=== PATIENT | male | born 1950 | race Caucasian/White ===

== ENCOUNTER → 2016-11-21 | Outpatient (CLI) | payer MEDICARE, OTHER ==
[~2016-11-21] MED LIST: ASPI-586 PO; HYDR-3454 PO; METF500T4 PO; OXYB5TAB9 PO; PRAV20TA3 PO; PROP20TA5 PO
[2016-11-21 13:16] LABS: BASOPHILS % (AUTO) 1 % (0-10); EOSINOPHILS # (AUTO) 0.1 10^3/uL (0.0-0.3); EOSINOPHILS % (AUTO) 2 % (0-10); LYMPHOCYTES # (AUTO) 1.9 X 10^3 (1.0-4.0); LYMPHOCYTES % (AUTO) 31 % (12-44); MEAN CORPUSCULAR HEMOGLOBIN 31 PG (25-34); MEAN CORPUSCULAR HGB CONC 36 G/DL (32-36); MEAN CORPUSCULAR VOLUME 88 FL (80-99); MEAN PLATELET VOLUME 9.7 FL (7.4-10.4); MONOCYTES # (AUTO) 0.7 X 10^3 (0.0-1.0); MONOCYTES % (AUTO) 12 % (0-12); NEUTROPHILS # (AUTO) 3.4 X 10^3 (1.8-7.8); NEUTROPHILS % (AUTO) 55 % (42-75); PLATELET COUNT 259 10^3/uL (130-400); RED BLOOD COUNT 4.68 10^6/uL (4.35-5.85); RED CELL DISTRIBUTION WIDTH 12.6 % (10.0-14.5); WHITE BLOOD COUNT 6.1 10^3/uL (4.3-11.0)
[2016-11-21 13:33] LABS: ALANINE AMINOTRANSFERASE 20 U/L (0-55); ALBUMIN 4.2 GM/DL (3.2-4.5); ANION GAP 11 MMOL/L (5-14); ASPARTATE AMINO TRANSFERASE 15 U/L (5-34); BILIRUBIN,TOTAL 0.6 MG/DL (0.1-1.0); BLOOD UREA NITROGEN 11 MG/DL (7-18); BUN/CREATININE RATIO 12; CARBON DIOXIDE 22 MMOL/L (21-32); CHLORIDE 107 MMOL/L (98-107); CREATININE SERUM 0.93 MG/DL (0.60-1.30); GFR ESTIMATED > 60; GLUCOSE 155 MG/DL (70-105); POTASSIUM 3.9 MMOL/L (3.6-5.0); SODIUM 140 MMOL/L (135-145); TOTAL PROTEIN 6.7 GM/DL (6.4-8.2)
== END ==
LOC: ONC 12:50
PROVIDERS: ATTEND Internal Medicine Hematology & Oncology
DX: D68.51 Activated protein C resistance (principal); R51 Headache; E11.9 Type 2 diabetes mellitus without complications; E78.5 Hyperlipidemia, unspecified; Z86.73 Personal history of transient ischemic attack (TIA), and cerebral infarction without residual deficits
CPT/HCPCS: 36415; 80053; 85025; 99213

== ENCOUNTER → 2018-03-16 | Outpatient (CLI) | payer MEDICARE, OTHER ==
[~2018-03-16] MED LIST changes: +METF-397 PO; -METF500T4 PO
== END ==
LOC: CARD 09:39
PROVIDERS: ATTEND Internal Medicine Interventional Cardiology
DX: I63.9 Cerebral infarction, unspecified (principal); I10 Essential (primary) hypertension
CPT/HCPCS: 93225; 93226

== ENCOUNTER 2018-05-14 12:30 | Outpatient (RCR) | payer MEDICARE, OTHER ==
[~2018-05-14 12:30] MED LIST changes: -HYDR-3454 PO; +HYDR-3455 PO
== END 2018-07-18 | disposition home or self-care (01) ==
LOC: CARD 12:30
PROVIDERS: ATTEND Internal Medicine Interventional Cardiology
DX: I63.9 Cerebral infarction, unspecified (principal); I10 Essential (primary) hypertension
CPT/HCPCS: 93270

== ENCOUNTER → 2018-11-28 | Outpatient (CLI) | payer MEDICARE, OTHER | LOC: ONC 12:50 | PROVIDERS: ATTEND Internal Medicine Hematology & Oncology | DX: D68.51 Activated protein C resistance (principal); E88.2 Lipomatosis, not elsewhere classified; N32.9 Bladder disorder, unspecified; E11.40 Type 2 diabetes mellitus with diabetic neuropathy, unspecified; E78.5 Hyperlipidemia, unspecified; Z79.899 Other long term (current) drug therapy; Z86.73 Personal history of transient ischemic attack (TIA), and cerebral infarction without residual deficits; Z87.891 Personal history of nicotine dependence | CPT/HCPCS: 99213 ==

== ENCOUNTER → 2019-11-27 | Outpatient (CLI) | payer MEDICARE, OTHER ==
[~2019-11-27] MED LIST changes: +OXYB5TAB13 PO; -OXYB5TAB9 PO
[2019-11-27 13:10] LABS: BASOPHILS # (AUTO) 0.1 10^3/uL (0.0-0.1); BASOPHILS % (AUTO) 1 % (0-10); EOSINOPHILS # (AUTO) 0.2 10^3/uL (0.0-0.3); EOSINOPHILS % (AUTO) 3 % (0-10); HEMATOCRIT 42 % (40-54); HEMOGLOBIN 15.1 G/DL (13.3-17.7); LYMPHOCYTES % (AUTO) 30 % (12-44); MEAN CORPUSCULAR HEMOGLOBIN 31 PG (25-34); MEAN CORPUSCULAR HGB CONC 36 G/DL (32-36); MEAN CORPUSCULAR VOLUME 87 FL (80-99); MEAN PLATELET VOLUME 9.5 FL (7.4-10.4); MONOCYTES # (AUTO) 0.7 X 10^3 (0.0-1.0); MONOCYTES % (AUTO) 10 % (0-12); NEUTROPHILS # (AUTO) 3.6 X 10^3 (1.8-7.8); NEUTROPHILS % (AUTO) 56 % (42-75); PLATELET COUNT 262 10^3/uL (130-400); RED CELL DISTRIBUTION WIDTH 12.7 % (10.0-14.5); WHITE BLOOD COUNT 6.5 10^3/uL (4.3-11.0)
[2019-11-27 13:28] LABS: ALANINE AMINOTRANSFERASE 29 U/L (0-55); ALBUMIN 4.5 GM/DL (3.2-4.5); ALKALINE PHOSPHATASE 66 U/L (40-136); BILIRUBIN,TOTAL 0.9 MG/DL (0.1-1.0); BUN/CREATININE RATIO 16; CALCIUM 9.9 MG/DL (8.5-10.1); CARBON DIOXIDE 23 MMOL/L (21-32); CHLORIDE 105 MMOL/L (98-107); CREATININE SERUM 0.94 MG/DL (0.60-1.30); GFR ESTIMATED > 60; GLUCOSE 154 MG/DL (70-105); SODIUM 138 MMOL/L (135-145); TOTAL PROTEIN 6.9 GM/DL (6.4-8.2)
== END ==
LOC: ONC 12:58
PROVIDERS: ATTEND Internal Medicine Hematology & Oncology
DX: D68.51 Activated protein C resistance (principal); E11.9 Type 2 diabetes mellitus without complications; E88.2 Lipomatosis, not elsewhere classified; N32.9 Bladder disorder, unspecified; E78.5 Hyperlipidemia, unspecified; Z98.890 Other specified postprocedural states
CPT/HCPCS: 80053; 85025; G0463; 99213

== ENCOUNTER 2020-03-27 18:01 | Emergency (ER) | payer MEDICARE, OTHER ==
[~2020-03-27] VITALS: Ht 177.8 cm; Wt 97.5 kg
[2020-03-27] MEDS ORDERED: ACETAMINOPHEN 500 MG TAB (TYLENOL) PO ONE (18:30)
[2020-03-27] MEDS ORDERED: IBUPROFEN 800 MG (MOTRIN) TAB PO ONE (18:30)
--- NOTE | 2020-03-27 18:32 | ED General ---
General Chief Complaint: General Problems/Pain Stated Complaint: COUGH,NAUSEA,HEADACHE,FEVER Source of Information: Patient Exam Limitations: No Limitations History of Present Illness Date Seen by Provider: Mar 27, 2020 Time Seen by Provider: 18:30 Initial Comments ER with about a 1 week history of intermittent shaking and sensation of being very cold. He is checked his temperature handful of times but it has never exceeded 100 degrees. He has had a slight nonproductive cough a couple of times a day. He has had some nausea and was incontinent of urine once during 1 of these episodes of shaking and extreme cold. He has had some urinary frequency and urgency at night over the past week as well. Primary care is Dr. Tidwell in [place]. Timing/Duration: 1-2 Days Severity: Moderate Associated Systoms: Cough, Fever/Chills, Headaches (Complains of headaches at night that go away during the day for the past week); No Shortness of Air (Denies shortness of breath) Allergies and Home Medications Allergies Coded Allergies: No Known Drug Allergies (Unverified , 03/18/14) Home Medications Aspirin 81 Mg Tablet.dr, 81 MG PO DAILY, (Reported) Hydrocodone/Acetaminophen 1 Each Tablet, 1 EACH PO Q4H PRN for PAIN Prescribed by: KEVIN MEHTA on 11/20/15 1147 Metformin HCl 500 Mg Tablet, 500 MG PO BID, (Reported) Oxybutynin Chloride 5 Mg Tablet, 5 MG PO BID, (Reported) Pravastatin Sodium 20 Mg Tablet, 20 MG PO HS, (Reported) Propranolol HCl 20 Mg Tablet, 20 MG PO BID, (Reported) Patient Home Medication List Home Medication List Reviewed: Yes Review of Systems Review of Systems Constitutional: see HPI, chills, fever EENTM: see HPI Respiratory: see HPI, cough Cardiovascular: no symptoms reported Genitourinary: see HPI, dysuria, frequency Musculoskeletal: no symptoms reported Skin: no symptoms reported Psychiatric/Neurological: See HPI, Headache Hematologic/Lymphatic: No Symptoms Reported Immunological/Allergic: no symptoms reported Past Dxxzjav-Pjxszb-Hxpcdx Hx Patient Social History Alcohol Use: Denies Use Recreational Drug Use: No Smoking Status: Former Smoker Type Used: Cigarettes Former Smoker, Quit: Nov 01, 1985 2nd Hand Smoke Exposure: No Past Medical History Surgeries: Yes (TURP, nasal fx, hernia x2, trigger finger, R CTR, prostate) Respiratory: No Cardiac: No Neurological: Yes (TIA-2002) Genitourinary: Yes ("still has some prostate") Prostate Problems Gastrointestinal: No Musculoskeletal: No Endocrine: Yes Cancer: No Psychosocial: No Integumentary: No Blood Disorders: Yes (factor 5, ) Physical Exam Vital Signs Vital Signs - First Documented 03/27/20 18:15 Temp 39.2 Pulse 116 Resp 26 B/P (MAP) 160/85 (110) Pulse Ox 94 O2 Delivery Room Air Capillary Refill : Height, Weight, BMI Height: 5'10.00" Weight: 220lbs. 0.0oz. 99.035210oe; 36.61 BMI Method: General Appearance: No Apparent Distress, WD/WN, Other (Temperature 102.6. Oxygen saturation 94% room air.) Eyes: Bilateral Eye Normal Inspection, Bilateral Eye PERRL Neck: Full Range of Motion, Normal Inspection Respiratory: No Accessory Muscle Use, No Respiratory Distress Cardiovascular: Normal Peripheral Pulses, Tachycardia Gastrointestinal: Normal Bowel Sounds, Non Tender, Soft Extremity: Normal Capillary Refill, Normal Inspection Neurologic/Psychiatric: Alert, Oriented x3 Skin: Normal Color, Warm/Dry Progress/Results/Core Measures Suspected Sepsis SIRS Temperature: Pulse: Respiratory Rate: Laboratory Tests 03/27/20 18:25: White Blood Count 6.4 Blood Pressure / Mean: Laboratory Tests 03/27/20 18:25: Creatinine 1.35H, Platelet Count 203, Total Bilirubin 0.5 Results/Orders Lab Results Laboratory Tests Test 03/27/20 18:25 03/27/20 18:27 03/27/20 18:49 Range/Units White Blood Count 6.4 4.3-11.0 10^3/uL Red Blood Count 4.85 4.30-5.52 10^6/uL Hemoglobin 15.2 13.3-17.7 g/dL Hematocrit 43 40-54 % Mean Corpuscular Volume 90 80-99 fL Mean Corpuscular Hemoglobin 31 25-34 pg Mean Corpuscular Hemoglobin Concent 35 32-36 g/dL Red Cell Distribution Width 11.9 10.0-14.5 % Platelet Count 203 130-400 10^3/uL Mean Platelet Volume 9.6 9.0-12.2 fL Immature Granulocyte % (Auto) 0 % Neutrophils (%) (Auto) 72 42-75 % Lymphocytes (%) (Auto) 16 12-44 % Monocytes (%) (Auto) 10 0-12 % Eosinophils (%) (Auto) 1 0-10 % Basophils (%) (Auto) 1 0-10 % Neutrophils # (Auto) 4.6 1.8-7.8 10^3/uL Lymphocytes # (Auto) 1.1 1.0-4.0 10^3/uL Monocytes # (Auto) 0.7 0.0-1.0 10^3/uL Eosinophils # (Auto) 0.0 0.0-0.3 10^3/uL Basophils # (Auto) 0.0 0.0-0.1 10^3/uL Immature Granulocyte # (Auto) 0.0 0.0-0.1 10^3/uL D-Dimer 0.09 0.00-0.49 UG/ML Sodium Level 135 135-145 MMOL/L Potassium Level 3.9 3.6-5.0 MMOL/L Chloride Level 100 98-107 MMOL/L Carbon Dioxide Level 21 21-32 MMOL/L Anion Gap 14 5-14 MMOL/L Blood Urea Nitrogen 15 7-18 MG/DL Creatinine 1.35 H 0.60-1.30 MG/DL Estimat Glomerular Filtration Rate 52 BUN/Creatinine Ratio 11 Glucose Level 249 H 70-105 MG/DL Calcium Level 8.9 8.5-10.1 MG/DL Corrected Calcium 8.5 8.5-10.1 MG/DL Total Bilirubin 0.5 0.1-1.0 MG/DL Aspartate Amino Transf (AST/SGOT) 22 5-34 U/L Alanine Aminotransferase (ALT/SGPT) 32 0-55 U/L Alkaline Phosphatase 73 40-136 U/L C-Reactive Protein High Sensitivity 1.19 H 0.00-0.50 MG/DL B-Type Natriuretic Peptide < 10.0 <100.0 PG/ML Total Protein 7.5 6.4-8.2 GM/DL Albumin 4.5 3.2-4.5 GM/DL Coronavirus 2019 (ABDULKADIR) Positive H Negative Urine Color YELLOW Urine Clarity CLEAR Urine pH 5.5 5-9 Urine Specific [place] 1.020 1.016-1.022 Urine Protein NEGATIVE NEGATIVE Urine Glucose (UA) 3+ H NEGATIVE Urine Ketones TRACE H NEGATIVE Urine Nitrite NEGATIVE NEGATIVE Urine Bilirubin NEGATIVE NEGATIVE Urine Urobilinogen 0.2 < = 1.0 MG/DL Urine Leukocyte Esterase NEGATIVE NEGATIVE Urine RBC (Auto) NEGATIVE NEGATIVE Urine RBC NONE /HPF Urine WBC 0-2 /HPF Urine Squamous Epithelial Cells 0-2 /HPF Urine Crystals NONE /LPF Urine Bacteria NEGATIVE /HPF Urine Casts NONE /LPF Urine Mucus NEGATIVE /LPF Urine Culture Indicated NO My Orders Orders - PATIENCE JOSEPH APRN Cbc With Automated Diff (03/27/20 18:06) Hs C Reactive Protein (03/27/20 18:06) Fibrin Degradation Products (03/27/20 18:06) Comprehensive Metabolic Panel (03/27/20 18:06) BNP (03/27/20 18:06) Chest 1 View, Ap/Pa Only (03/27/20 18:06) Covid 19 Inhouse Test (03/27/20 18:06) Influenza A And B Antigens (03/27/20 18:06) Ua Culture If Indicated (03/27/20 18:29) Ibuprofen Tablet (Motrin Tablet) (03/27/20 18:30) Acetaminophen Tablet (Tylenol Tablet) (03/27/20 18:30) Ns Iv 500 Ml (Sodium Chloride 0.9%) (03/27/20 19:00) Alprazolam Tablet (Xanax Tablet) (03/27/20 19:15) Medications Given in ED Current Medications Medications Dose Ordered Sig/Fabian Route Start Time Stop Time Status Last Admin Dose Admin Acetaminophen 1,000 mg ONCE ONCE PO 03/27/20 18:30 03/27/20 18:31 DC 03/27/20 18:44 1,000 MG Ibuprofen 800 mg ONCE ONCE PO 03/27/20 18:30 03/27/20 18:31 DC 03/27/20 18:47 400 MG Vital Signs/I&O 03/27/20 18:15 Temp 39.2 Pulse 116 Resp 26 B/P (MAP) 160/85 (110) Pulse Ox 94 O2 Delivery Room Air Capillary Refill : Diagnostic Imaging Diagonstic Imaging: Xray Plain Films/CT/US/NM/MRI: chest Comments NAME: ZAIDA HAYNES [facility] REC#: [id number] PT STATUS: REG ER : 1950 PHYSICIAN: PATIENCE JOSEPH COIL MAKER ADMIT DATE: 03/27/20/ER Signed Date of Exam:03/27/20 CHEST 1 VIEW, AP/PA ONLY EXAMINATION: Chest 1 view HISTORY: cough COMPARISON: None available. FINDINGS: The lungs are clear without edema or pneumonia. No pleural effusion or pneumothorax. Heart size is normal. IMPRESSION: 1. Clear lungs. Dictated by: Dictated on workstation # [id number] Dict: 03/27/201835 Trans: 03/27/201836 [facility] [id number] Interpreted by: ADEOLA ALBARRAN MD Electronically signed by: ADEOLA ALBARRAN MD 03/27/201836 Departure Communication (Admissions) . He is a very anxious individual. 1905- labs are unremarkable vital signs are unremarkable. Chest x-ray is clear. He meets criteria for Bamlanivimab infusion he states he is scheduled to do one of his friends mother's on Monday. I advised him that this should absolutely not be done. Impression Primary Impression: COVID-19 Disposition: HOME, SELF-CARE Condition: Stable Departure-Patient Inst. Decision time for Depature: 19:03 Referrals: QUINTIN TIDWELL MD (PCP/Family) Primary Care Physician Patient Instructions: COVID19 Add. Discharge Instructions: Important that you go home and quarantine. [facility] will be in contact with you to guide you as to when to come off of quarantine. Typically this is 10 days from symptom onset assuming that the last 3 days of illness have been without fevers or chills. You meet criteria for a monoclonal antibody infusion because your case is considered mild to moderate at this time. This antibody can help reduce the need for hospitalization because of Covid. You will be called Monday with a time to be scheduled for this 1 hour infusion. All discharge instructions reviewed with patient and/or family. Voiced understanding. Copy Copies To 1: UQINTIN TIDWELL MD, PETER J APRN Mar 27, 2020 18:32
[2020-03-27 18:38] LABS: BASOPHILS % (AUTO) 1 % (0-10); EOSINOPHILS % (AUTO) 1 % (0-10); HEMATOCRIT 43 % (40-54); HEMOGLOBIN 15.2 g/dL (13.3-17.7); LYMPHOCYTES # (AUTO) 1.1 10^3/uL (1.0-4.0); LYMPHOCYTES % (AUTO) 16 % (12-44); MEAN CORPUSCULAR HEMOGLOBIN 31 pg (25-34); MEAN CORPUSCULAR HGB CONC 35 g/dL (32-36); MEAN CORPUSCULAR VOLUME 90 fL (80-99); MEAN PLATELET VOLUME 9.6 fL (9.0-12.2); MONOCYTES # (AUTO) 0.7 10^3/uL (0.0-1.0); MONOCYTES % (AUTO) 10 % (0-12); NEUTROPHILS # (AUTO) 4.6 10^3/uL (1.8-7.8); NEUTROPHILS % (AUTO) 72 % (42-75); PLATELET COUNT 203 10^3/uL (130-400); WHITE BLOOD COUNT 6.4 10^3/uL (4.3-11.0)
--- NOTE | 2020-03-27 18:38 | Diagnostic Imaging Report ---
EXAMINATION: Chest 1 view HISTORY: cough COMPARISON: None available. FINDINGS: The lungs are clear without edema or pneumonia. No pleural effusion or pneumothorax. Heart size is normal. IMPRESSION: 1. Clear lungs. Dictated by: Dictated on workstation # [id number]
[2020-03-27 18:47] LABS: ALBUMIN 4.5 GM/DL (3.2-4.5); POTASSIUM 3.9 MMOL/L (3.6-5.0)
[2020-03-27 18:48] LABS: CALCIUM 8.9 MG/DL (8.5-10.1)
[2020-03-27 18:49] LABS: TOTAL PROTEIN 7.5 GM/DL (6.4-8.2)
--- NOTE | 2020-03-27 18:49 | NUR ---
Pt reports taking two 200 mg IBU EXPLOSIVE EXPERT. Half of an 800 mg tablet given to pt per Hakeem.
[2020-03-27 18:51] LABS: BILIRUBIN,TOTAL 0.5 MG/DL (0.1-1.0)
[2020-03-27 18:53] LABS: CREATININE SERUM 1.35 MG/DL (0.60-1.30)
[2020-03-27 18:56] LABS: BILIRUBIN,URINE NEGATIVE (NEGATIVE); CLARITY,URINE CLEAR; COLOR,URINE YELLOW; GLUCOSE, URINE (UA) 3+ (NEGATIVE); KETONES,URINE TRACE (NEGATIVE); LEUKOCYTE ESTERASE ,URINE NEGATIVE (NEGATIVE); NITRITE,URINE NEGATIVE (NEGATIVE); PH,URINE 5.5 (5-9); PROTEIN,URINE NEGATIVE (NEGATIVE)
[2020-03-27] MEDS ORDERED: NS IV 500 ML 500 ML IV SCH (19:00)
[2020-03-27 19:03] LABS: BACTERIA,URINE NEGATIVE /HPF; SQUAMOUS EPITHELIAL CELL,UR 0-2 /HPF; WBC,URINE 0-2 /HPF
[2020-03-27] MEDS ORDERED: RX-LORAZEPAM (ATIVAN) 0.5 MG TAB PPK#4 PO STA (19:05)
[2020-03-27] MEDS ORDERED: ALPRAZolam 0.25 MG (XANAX) TAB PO ONE (19:15)
[2020-03-27 19:35] VITALS: BP 139/95
== END 2020-03-27 20:10 | disposition home or self-care (01) ==
LOC: EDUNIT# 18:01 → ER 18:04
DX: U07.1 COVID-19 (principal); Z87.891 Personal history of nicotine dependence; Z86.73 Personal history of transient ischemic attack (TIA), and cerebral infarction without residual deficits; Z79.82 Long term (current) use of aspirin
CPT/HCPCS: 71045; 80053; 81000; 83880; 85025; 85379; 86141; 87804; 99284; U0002; 36415; 87635

== ENCOUNTER → 2020-03-30 | Outpatient (CLI) | payer MEDICARE, OTHER ==
[~2020-03-30] VITALS: Ht 178 cm; Wt 97.0 kg
[~2020-03-30] MED LIST changes: +BAMLANIVIMAB 700 MG in NS 200 ML IV ONE; +EPINEPHrine INJECTION 1 MG/ML AMP IM PRN; +diphenhydrAMINE 50 MG/ML INJ (BENADRYL) IV PRN
[2020-03-30 13:17] VITALS: BP 144/79
[2020-03-30 15:30] VITALS: BP 131/62
== END ==
LOC: INFUSION 13:18
PROVIDERS: ATTEND Nurse Practitioner Family
DX: U07.1 COVID-19 (principal)

== ENCOUNTER → 2021-03-15 | Outpatient (CLI) | payer MEDICARE, OTHER ==
[~2021-03-15] MED LIST changes: -BAMLANIVIMAB 700 MG in NS 200 ML IV ONE; -EPINEPHrine INJECTION 1 MG/ML AMP IM PRN; -diphenhydrAMINE 50 MG/ML INJ (BENADRYL) IV PRN
== END ==
LOC: CARD 13:00
PROVIDERS: ATTEND Internal Medicine Cardiovascular Disease
DX: I11.9 Hypertensive heart disease without heart failure (principal)
CPT/HCPCS: 93306

== ENCOUNTER → 2021-05-05 | Outpatient (CLI) | payer MEDICARE, OTHER ==
[~2021-05-05] MED LIST changes: +REGADENOSON 0.4 MG/5 ML SYR (LEXISCAN) IV ONE
[2021-05-05] MEDS: CATHETER FLUSH 10 ML SYR IV PRN ×2 (07:36→08:50)
[2021-05-05 08:46] VITALS: BP 166/85
--- NOTE | 2021-05-05 11:32 | Cardiology Stress Test Report ---
Stress Test Report Date of Procedure/Referring: Date of Procedure: May 05, 2021 PCP Yue Holman MD Admitting Physician Zoey Silvestre MD Indications: CP Baseline Heart Rate: 70 Baseline Blood Pressure: Blood Pressure Systolic: 166 Blood Pressure Diastolic: 85 Baseline Vitals Vital Signs Date Time Temp Pulse Resp B/P (MAP) Pulse Ox O2 Delivery O2 Flow Rate FiO2 05/05/21 08:46 75 166/85 (112) 96 Room Air Baseline EKG: Baseline EKG: NSR Summary After explaining the procedure to the patient, he signed a consent and then brought to the stress nuclear laboratory. Patient received 0.4 mg Lexiscan for stress test, ECG, heart rate and blood pressure were monitored continuously. Resting and stress dose of radio tracer were injected, imaging was acquired and reviewed in short axis, horizontal long axis and vertical long axis views. TID: 1.14 SSS: 1 SDS: 1 EF: 66 1. Patient tolerated Lexiscan well 2. No significant ischemia or infarction on SPECT images 3. Normal left ventricular size, EF 66% YUE HOLMAN MD May 05, 2021 11:32
== END ==
LOC: CARD 07:45
PROVIDERS: ATTEND Internal Medicine Cardiovascular Disease
DX: I25.10 Atherosclerotic heart disease of native coronary artery without angina pectoris (principal); I10 Essential (primary) hypertension
CPT/HCPCS: 78452; 93017; A9502

== ENCOUNTER → 2022-11-02 | Outpatient (CLI) | payer MEDICARE, OTHER ==
[~2022-11-02] MED LIST changes: +CATHETER FLUSH 10 ML SYR IVP PRN; -REGADENOSON 0.4 MG/5 ML SYR (LEXISCAN) IV ONE
[2022-11-02 09:12] VITALS: BP 183/100
--- NOTE | 2022-11-02 13:17 | Cardiology Stress Test Report ---
Stress Test Report Date of Procedure/Referring: Date of Procedure: Nov 02, 2022 PCP Zoey Tidwell MD Admitting Physician Admitting Physician: Attending Physician: Lauri Holman MD Baseline Heart Rate: 66 Baseline Blood Pressure: Blood Pressure Systolic: 183 Blood Pressure Diastolic: 100 Vital Signs Date Time Temp Pulse Resp B/P (MAP) Pulse Ox O2 Delivery O2 Flow Rate FiO2 11/02/22 09:12 100 22 183/100 (127) 99 Baseline Vital Signs Vital Signs Date Time Temp Pulse Resp B/P (MAP) Pulse Ox O2 Delivery O2 Flow Rate FiO2 11/02/22 09:12 100 22 183/100 (127) 99 Baseline EKG: Baseline EKG: NSR Summary: After explaining the procedure and details to the patient, he signed the consent and was brought to the stress nuclear laboratory. Patient exercised on standard [place] protocol, EKG, heart rate and blood pressure were monitored continuously, resting and stress doses of radio tracer were injected, imaging was acquired and reviewed in the short axis, horizontal long axis and vertical long axis views Patient was able to exercise for a total of 6:30 minutes on Gaston protocol, METs 7.1 Maximum heart rate 130 Maximum blood pressure 242/114 Stress EKG, Minimal nondiagnostic changes Recovery EKG, Return to baseline TID: 1.08 SSS: 5 SDS: 4 EF: 68 Conclusion: Fair exercise tolerance for 6 minutes and 30 seconds on standard Gaston protocol, 7.1 METS achieving 85% of maximal expected heart rate Appropriate heart rate response to exercise with hypertensive response to exercise with peak blood pressure 242/114 return to baseline during recovery Nondiagnostic EKG changes with exercise return to baseline during recovery Diaphragmatic attenuation with mild decrease uptake at the mid to apical inferolateral wall with mild reversibility, overall no significant ischemia or infarction noted on SPECT images Normal left ventricular size, ejection fraction 68% Copy Copies To 1: ZOEY TIDWELL MD, BASHAR J MD Nov 02, 2022 13:16
== END ==
LOC: CARD 07:23
PROVIDERS: ATTEND Internal Medicine Cardiovascular Disease
DX: I10 Essential (primary) hypertension (principal); I25.10 Atherosclerotic heart disease of native coronary artery without angina pectoris
CPT/HCPCS: 78452; 93017; A9502

== ENCOUNTER 2023-03-01 09:31 | Day surgery (SDC) | payer MEDICARE, OTHER ==
[2023-03-01] VITALS (14 sets, daily range): BP systolic 129–172; BP diastolic 55–107
[~2023-03-01] VITALS: Ht 177.8 cm; Wt 98.8 kg
[~2023-03-01 09:31] MED LIST changes: -CATHETER FLUSH 10 ML SYR IVP PRN; -OXYB5TAB13 PO; +OXYB5TAB14 PO
[2023-03-01] MEDS ORDERED: HEParin (CATH LAB) 2,000 ML IV ONE (09:38)
[2023-03-01] MEDS ORDERED: LIDOCAINE 1% INJ 20 ML VIAL ONE (09:38)
[2023-03-01] MEDS ORDERED: NS IV 1000 ML 1,000 ML ONE (09:38)
[2023-03-01] MEDS ORDERED: NS IV 1000 ML 1,000 ML IV SCH (09:45)
--- NOTE | 2023-03-01 10:04 | Diagnostic Imaging Report ---
INDICATION: Chest pain COMPARISON: 03/27/2020 Single AP view of the chest is obtained. FINDINGS: Heart size and pulmonary vascularity are within normal limits, and the lungs are clear, bilaterally. IMPRESSION: Unremarkable chest. Dictated by: Dictated on workstation # [id number]
[2023-03-01 10:09] LABS: HEMATOCRIT 41 % (40-54); HEMOGLOBIN 13.7 g/dL (13.3-17.7); MEAN CORPUSCULAR HEMOGLOBIN 29 pg (25-34); MEAN CORPUSCULAR HGB CONC 33 g/dL (32-36); MEAN CORPUSCULAR VOLUME 88 fL (80-99); MEAN PLATELET VOLUME 9.5 fL (9.0-12.2); PLATELET COUNT 260 10^3/uL (130-400); WHITE BLOOD COUNT 5.5 10^3/uL (4.3-11.0)
--- NOTE | 2023-03-01 10:20 | Cardiac Procedure Note-CS/ASA ---
Pre-Procedure Note Pre-Op Procedure Note Date of Available H&P: Feb 16, 2023 Date H&P Reviewed: Mar 01, 2023 Time H&P Reviewed: 10:19 History & Physical: H&P Reviewed, Patient Examed, No changes noted Pre-Operative Diagnosis: CAD Moderate Sedation PreProcedure Time 10:20 ASA Score 3 Airway Lungs Heart ASA score ASA 1: a normal healthy patient ASA 2: a patient with a mild systemic disease (mid diabetes, controlled hypertension, obesity ASA 3: a patient with a severe systemic disease that limits activity (angina, COPD, prior Myocardial infarction) ASA 4: a patient with an incapacitating disease that is a constant threat to life (CHF, renal failure) ASA 5: a moribund patient not expected to survive 24 hrs. (ruptured aneurysm) ASA 6: a declared brain- patient whose organs are being harvested. For emergent operations, add the letter E after the classification Mallampati Classification Grade 3 Sedation Plan Analgesia, Amnesia, Plan communicated to team members, Discussed options with patient/fam, Discussed risks with patient/fam The patient is an appropriate candidate to undergo the planned procedure, sedation, and anesthesia. The patient immediately re-assessed prior to indication. YUE AWAN MD Mar 01, 2023 10:20
[2023-03-01] MEDS ORDERED: OMEG100032 PO (10:22)
[2023-03-01] MEDS ORDERED: ATOR40TA70 PO (10:22)
[2023-03-01] MEDS ORDERED: CLOP75TA28 PO (10:22)
[2023-03-01] MEDS ORDERED: ASPI-1238 PO (10:22)
[2023-03-01] MEDS ORDERED: PIOG15TA67 PO (10:22)
[2023-03-01] MEDS ORDERED: PROP20TA5 PO (10:22)
[2023-03-01] MEDS ORDERED: ACET325T38 PO (10:22)
[2023-03-01] MEDS ORDERED: LOSA25TA41 PO (10:22)
[2023-03-01 10:26] LABS: PROTHROMBIN TIME PATIENT 13.5 SEC (12.2-14.7)
[2023-03-01 10:29] LABS: ALBUMIN 4.5 GM/DL (3.2-4.5); BILIRUBIN,TOTAL 0.6 MG/DL (0.1-1.0); CALCIUM 9.2 MG/DL (8.5-10.1); CREATININE SERUM 1.07 MG/DL (0.60-1.30); POTASSIUM 4.3 MMOL/L (3.6-5.0); TOTAL PROTEIN 7.4 GM/DL (6.4-8.2)
[2023-03-01] MEDS ORDERED: MIDAZOLAM INJ 5 MG/5 ML VIAL ONE (10:30)
[2023-03-01] MEDS ORDERED: VERAPAMIL 5 MG/2 ML (CALAN) VIAL IV ONE (10:30)
[2023-03-01] MEDS ORDERED: fentaNYL INJECTION 100 MCG/2 ML VIAL ONE (10:30)
[2023-03-01] MEDS ORDERED: HEParin 1000 UNIT/ML (10ML VIAL) FOR BOLUS ONE (10:30)
[2023-03-01 10:35] LABS: CLARITY,URINE CLEAR; COLOR,URINE YELLOW; GLUCOSE, URINE (UA) NEGATIVE (NEGATIVE); KETONES,URINE NEGATIVE (NEGATIVE); NITRITE,URINE NEGATIVE (NEGATIVE); PH,URINE 6.5 (5-9); PROTEIN,URINE NEGATIVE (NEGATIVE)
[2023-03-01 10:36] LABS: BACTERIA,URINE NEGATIVE /HPF; BILIRUBIN,URINE NEGATIVE (NEGATIVE); LEUKOCYTE ESTERASE ,URINE NEGATIVE (NEGATIVE)
[2023-03-01] MEDS ORDERED: ASPIRIN 325 MG TABLET ONE (11:46)
[2023-03-01] MEDS ORDERED: CLOPIDOGREL 300 MG TABLET PO ONE (11:47)
[2023-03-01] MEDS ORDERED: ACETAMINOPHEN 325 MG TABLET PO PRN (12:00)
--- NOTE | 2023-03-01 12:01 | Cardiac Cath Report ---
Cardiac Cath Report Physician (s)/Embossing Machine Operator (s) Physician YUE AWAN MD Pre-Procedure Diagnosis Pre-Procedure Diagnosis: CAD Post-Procedure Note Procedure Start Date: Mar 01, 2023 Name of Procedure: Left heart catheterization IFR to the ramus intermedius IFR to the LAD Stenting to the LAD IVUS to the LAD IVUS to the left main Findings/Procedure Note PROCEDURE NOTE: 72-year-old gentleman with history of diabetes mellitus, hypertension hyperlipidemia has been having chest pain, had an abnormal stress test, cardiac catheterization was advised. After explaining the procedure to the patient, all pros and cons were explained, all questions were answered. The patient signed the consent and then he was placed in the cardiac catheterization laboratory. Groin was prepped in SL fashion local anesthesia was used. Sheath placed in the right radial artery, [place] catheter was advanced to the left ventricular cavity, pressure was measured, pullback LV to aorta was done, engaged the right and left coronary system, angiogram was done. Patient had severe stenosis in the LAD and borderline lesion in the left main Delaney left guide was used, patient received 6000 units of heparin IFR wire was advanced to the ramus intermedius and baseline IFR was 1 IFR wire was redirected to the LAD and it was 0.86 I was unable to advance a stent, proceeded with predilatation with 2.5 x 20 balloon then I advanced Orsiro SLAVA 2.75 x 30 mm expanded to 2.8 mm. IFR post deployment of stent was 0.91. I advanced IVUS through the LAD and showed good deployment Run the IVUS catheter again through the left main and evaluated the lesion in the distal left main which was 50 to 60% nonobstructive lesion At the end of the procedure the sheath was removed. Vascular band was used FINDINGS: Hemodynamics LV 120/10, end-diastolic pressure of 10 Aorta 112/65 mean of 84 ANATOMY: Left Main has 50% distal lesion, IFR through the lesion was 1.0, IVUS showed moderate disease nonobstructive lesion Left Anterior Descending has 90% long stenosis in the proximal LAD IFR was 0.86, status post deployment of Orsrio 2.75 x 30 mm post deployment IFR was 0.91. IVUS showed good deployment Left Circumflex is moderate in size with nonobstructive disease Right Coronary Artery is dominant artery with no obstructive disease LV Gram was not done, pressure was measured PERCUTANEOUS INTERVENTION: Pre stenosis 90% Post Stenosis 0% Pre STEFANIA flow 2 Post STEFANIA flow 3 Dominance right coronary artery CONCLUSION: 90% proximal LAD stenosis confirmed by IFR. Status post deployment of Orsiro 2.75 x 30 mm postdilated to 2.8 with excellent results. No residual stenosis 50% distal left main coronary artery stenosis, IFR through the left main was 1.0, IVUS showed moderate disease Otherwise no significant obstructive disease Normal left ventricular end-diastolic pressure DISCUSSION AND RECOMMENDATION: Patient was loaded with aspirin and Plavix. Anesthesia Type: Conscious Sedation Estimated blood loss (mL): 25 ml Contrast Amount: 200 ml Total Radiation Dose: 2282 Post-Procedure Diagnosis Post-operative diagnosis: Coronary artery disease Chest pain Hypertension Hyperlipidemia YUE AWAN MD Mar 01, 2023 12:01
[2023-03-01] MEDS ORDERED: NITRO DRIP 25000 MCG/D5W 250 ML IV ONE (12:46)
[2023-03-01] MEDS: NS IV 1000 ML 1,000 ML IV SCH ×2 (13:10→17:30)
[2023-03-01] MEDS ORDERED: PATIENT MAY USE OWN MEDS, ALL MC SCH (17:15)
[2023-03-01] MEDS: PROPRANOLOL 20 MG TABLET PO SCH (20:18)
[2023-03-01] MEDS: OXYBUTYNIN 5 MG TABLET PO SCH (20:22)
[2023-03-01] MEDS ORDERED: OMEGA 3 (FISH OIL) 1000 MG CAP PO SCH (21:00)
[2023-03-02 04:00] VITALS: BP 138/98
[2023-03-02] MEDS ORDERED: PIOGLITAZONE 30MG TABLET PO SCH (07:00)
[2023-03-02] MEDS ORDERED: PIOGLITAZONE 15 MG TAB PO SCH (07:00)
[2023-03-02] MEDS ORDERED: METF-397 PO (07:27)
[2023-03-02] MEDS ORDERED: PANT40TA2 PO (07:27)
--- NOTE | 2023-03-02 07:28 | Discharge Inst-Post CATH ---
Discharge Inst-CATH/EP Problems Reviewed?: Yes Post Cardiac Cath/EP D/C Inst Follow Up/Plan Hold metformin for [address] Holman's office in 2 to 4 weeks <b>CARDIAC CATH/EP PROCEDURE DISCHARGE INSTRUCTIONS</b> ACTIVITY * Go Home directly and rest. * Limit activity of the leg (or wrist if it was used) for 7 days including aerobics, swimming, jogging, bicycling, etc. * Restrict stair-climbing for 7 days if possible, if not, climb up with your non-cath leg, then bring together on the same step. * Avoid lifting, pushing, pulling or excessive movement of the affected extremity for 7 days. * Customary sexual activity may be resumed after 2 days-use caution not to use a position that strains or causes pain to the affected extremity. * No driving for 24 hours. * NO SMOKING. * Avoid straining for bowel movements for 7 days. * Gentle walking on level ground is allowed. * Returning to work will depend on the type of procedure and the results. Your doctor will discuss this with you. CALL YOUR DOCTOR FOR ANY OF THE FOLLOWING: *If bleeding from the puncture site occurs- Apply gentle pressure to site with clean cloth and call your doctor or EMS. * If a knot or lump forms under the skin, increases in size, or causes pain. * If bruising appears to be worsening or moving further down your leg instead of disappearing. * Temperature above 101 F. CARE OF YOUR GROIN INCISION; * Bruising or purple discoloration of the skin near the puncture site is common. * You may shower only, no bathtub bathing for 5 days. Be careful to avoid slipping as your leg may feel stiff. * If a closure device was used on your femoral artery, please see the attached guide regarding care of the device and your leg. * Leave dressing on FOR 24 hours. CARE OF YOUR WRIST INCISION; * Bruising or purple discoloration of the skin near the puncture site is common. * You may shower. * DO NOT submerge wrist. * Leave dressing on FOR 24 hours. YUE HOLMAN MD Mar 02, 2023 07:28
[2023-03-02] MEDS: NS IV 1000 ML 1,000 ML IV SCH (08:00)
--- NOTE | 2023-03-02 08:04 | Cardiology Progress Note ---
Subjective Date Seen by Provider: Mar 02, 2023 Time Seen by Provider: 08:03 Subjective/Events-last exam Patient was seen at bedside, laying down comfortably, feeling well. No chest pain. Objective-Cardiology Exam Last Set of Vital Signs Vital Signs 03/02/23 04:00 Temp 36.6 Pulse 73 Resp 18 B/P (MAP) 138/98 (111) Pulse Ox 98 O2 Delivery Room Air I&O Intake and Output 03/01/23 23:59 Intake Total 450 ml Output Total 875 ml Balance -425 ml Intake Oral 450 ml Output Urine Total 875 ml Daily Weight Change No General: Alert, Oriented X3, Cooperative HEENT: Atraumatic, PERRLA Neck: Supple, No JVD, No Thyromegaly Lungs: Clear to Auscultation, Normal Air Movement Heart: Regular Rate, Normal S1, Normal S2, No Murmurs Abdomen: Normal Bowel Sounds, Soft, No Tenderness, No Hepatosplenomegaly, No Masses Extremities: No Clubbing, No Cyanosis, No Edema, Normal Pulses, No Tenderness/Swelling Skin: No Rashes, No Breakdown, No Significant Lesion Neuro: Normal Gait, Normal Speech, Strength at 5/5 X4 Ext, Normal Tone, Sensation Intact Psych/Mental Status: Mental Status NL, Mood NL Results Lab Laboratory Tests 03/01/23 09:57 A/P-Cardiology Admission Diagnosis Coronary artery disease Hypertension Hyperlipidemia Diabetes mellitus Assessment/Plan Coronary artery disease, status post stenting to the LAD Borderline lesion in the left main, conservative management Educated on taking aspirin and Plavix Hypertension, restart home medication monitor blood pressure Hyperlipidemia, continue to monitor lipids Diabetes mellitus, educated on holding metformin for 48 hours restart on Monday Planning for discharge today YUE AWAN MD Mar 02, 2023 08:04
[2023-03-02] MEDS: OXYBUTYNIN 5 MG TABLET PO SCH (08:26)
[2023-03-02] MEDS: PROPRANOLOL 20 MG TABLET PO SCH (08:27)
[2023-03-02] MEDS ORDERED: LOSARTAN 25 MG TABLET PO SCH (09:00)
[2023-03-02] MEDS ORDERED: ASPIRIN enteric coated 81MG TABLET PO SCH (09:00)
[2023-03-02] MEDS ORDERED: NON-FORMULARY MEDICATION 1 EA EA (Pioglitazone HCl 15 MG) PO SCH (09:00)
[2023-03-02] MEDS ORDERED: CLOPIDOGREL 75 MG TABLET PO SCH (09:00)
== END 2023-03-02 09:20 | disposition home or self-care (01) ==
LOC: CATH 09:31 → CSD 12:20 → CATH 03-02 09:20
PROVIDERS: ATTEND Internal Medicine Cardiovascular Disease
DX: I25.10 Atherosclerotic heart disease of native coronary artery without angina pectoris (principal); I65.23 Occlusion and stenosis of bilateral carotid arteries; E78.2 Mixed hyperlipidemia; I10 Essential (primary) hypertension; E11.9 Type 2 diabetes mellitus without complications; E66.9 Obesity, unspecified; Z68.31 Body mass index [BMI] 31.0-31.9, adult; Z87.891 Personal history of nicotine dependence; Z79.84 Long term (current) use of oral hypoglycemic drugs
CPT/HCPCS: 71045; 80053; 80061; 81000; 85027; 85347; 85610; 85730; 87081; 92978; 92979; 93005; 93458; 93571; 93572; C1725; C1753; C1769 ×3; C1874; C1887; C1894; C9600; 36415